=== PATIENT | male | born 1935 | race Caucasian/White ===

== ENCOUNTER 2017-11-04 20:09 | Emergency (ER) | payer OTHER, MEDICAID ==
[2017-11-04 23:19] VITALS: BP 122/53
== END 2017-11-04 23:25 | disposition home or self-care (01) ==
LOC: ED 20:09
DX: S51.012A Laceration without foreign body of left elbow, initial encounter (principal); E78.00 Pure hypercholesterolemia, unspecified; W18.39XA Other fall on same level, initial encounter; Y93.89 Activity, other specified; Y92.89 Other specified places as the place of occurrence of the external cause; Y99.8 Other external cause status
CPT/HCPCS: J2001

== ENCOUNTER 2017-11-13 17:30 | Emergency (ER) | payer OTHER, MEDICAID ==
[~2017-11-13] VITALS: Ht 152.4 cm; Wt 66.7 kg
[2017-11-13 17:53] VITALS: Ht 152.4 cm; Wt 66.7 kg
[2017-11-13 18:34] VITALS: BP 135/60
== END 2017-11-13 18:34 | disposition home or self-care (01) ==
LOC: ED 17:30
DX: S60.222A Contusion of left hand, initial encounter (principal); T81.33XD Disruption of traumatic injury wound repair, subsequent encounter; E78.00 Pure hypercholesterolemia, unspecified; R60.0 Localized edema; X58.XXXA Exposure to other specified factors, initial encounter; Y93.89 Activity, other specified; Y92.89 Other specified places as the place of occurrence of the external cause; Y99.8 Other external cause status